=== PATIENT | female | born 1935 | race Caucasian/White ===

== ENCOUNTER 2016-11-28 08:26 | Observation (INO) ==
[2016-11-28] MEDS ORDERED: Aspirin 81 MG TAB.CHEW PO STA (08:37)
[2016-11-28] MEDS ORDERED: Nitroglycerin 1 INCH/GM PACKET TP ONE (08:39)
--- NOTE | 2016-11-28 08:40 | Emergency Department Note ---
Disposition Clinical Impression: Chest pain Qualifiers: Chest pain type: unspecified Qualified Code(s): R07.9 - Chest pain, unspecified Disposition: Admitted As Inpatient Condition: Fair Instructions: Chest Pain (ED) Referrals: NO,PCP [Primary Care Provider] - Forms: ED Satisfaction Letter Time of Disposition: 09:16 Chest Pain HPI - General Chief Complaint: ED Chest Pain Stated Complaint: C/P Time Seen by Provider: 11/28/16 08:28 Source: patient Limitations: no limitations Vital Signs Reviewed: Yes Nursing Notes Reviewed: Yes - History of Present Illness HPI Narrative: 81-year-old female who was over at the pain management to have a left hip injection and reported that she's been having chest pain this morning just started prior to arrival. She describes it as a heaviness in her chest. The patient has never had cardiac workup is no history of coronary artery disease. Her only risk factor R family history and age. 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 Duration: constant Onset: during rest Pain Location: left chest Severity: moderate, severe Severity scale (1-10): 8 Quality: tightness, aching Pain Radiation: none Improves with: nothing Worsens with: nothing Associated symptoms: Reports: diaphoresis Treatments prior to arrival chest pain: none - Related Data Allergies Allergy/AdvReac Type Severity Reaction Status Date / Time Amoxicillin AdvReac Anxiety Unverified 04/11/15 10:24 celecoxib [From Celebrex] AdvReac Gastrointestinal Unverified 04/11/15 10:24 Upset ciprofloxacin [From Cipro] AdvReac Nausea Unverified 04/11/15 10:24 codeine AdvReac Nausea Unverified 04/11/15 10:24 diphenhydramine AdvReac Nausea Unverified 04/11/15 10:24 [From Benadryl] duloxetine [From Cymbalta] AdvReac Confusion Unverified 04/11/15 10:24 gabapentin AdvReac Anxiety Unverified 04/11/15 10:24 pregabalin [From Lyrica] AdvReac Anxiety Unverified 04/11/15 10:24 promethazine [From Phenergan] AdvReac Anxiety Unverified 04/11/15 10:24 sertraline AdvReac Anxiety Unverified 04/11/15 10:24 sulfamethoxazole AdvReac Hives Unverified 04/11/15 10:24 [From Bactrim] trimethoprim [From Bactrim] AdvReac Hives Unverified 04/11/15 10:24 Zolpidem [From Ambien] AdvReac Insomnia Unverified 04/11/15 10:24 All systems ED: reviewed and negative except as stated. Constitutional: Denies: fever, chills, weakness, weight change Eyes: Denies: eye pain, eye discharge, vision change ENT ED: Denies: ear pain, throat pain, dental pain, hearing loss, epistaxis, congestion, dysphagia Cardiovascular: Reports: chest pain. Denies: palpitations, dyspnea on exertion , edema, syncope Respiratory: Denies: cough, dyspnea, wheezes, hemoptysis, stridor Gastrointestinal: Denies: abdominal pain, nausea, vomiting, diarrhea, constipation, hematemesis, melena, hematochezia Genitourinary: Denies: dysuria, frequency, hematuria, discharge Musculoskeletal: Denies: back pain, neck pain, arthralgia, myalgia Integumentary: Denies: rash, abrasion, lesions Neurological: Denies: headache, weakness, numbness, paresthesias, confusion, abnormal gait, vertigo Psychiatric: Denies: anxiety, depression, suicidal thoughts, homicidal thoughts , auditory hallucinations, visual hallucinations Endocrine: Denies: fatigue Hematological/Lymphatic: Denies: easy bleeding, easy bruising Allergic/Immunologic: Denies: facial swelling, urticaria Chest Pain PMH - Past Medical History Medical history: Reports: arthritis, cancer, osteoporosis Surgical history: Reports: cancer surgery, MIGUEL/BSO Psychiatric history: Reports: no psych history - Social History Smoking Status: Never smoker Alcohol use: Reports: none Drug use: Reports: none Physical Exam - General Limitations: no limitations General appearance: alert, in no apparent distress - Head Head exam: atraumatic, normocephalic, normal inspection - Eye Eye exam: Present: normal appearance, PERRL, EOMI - ENT ENT exam: normal exam, normal oropharynx, mucous membranes moist - Neck Neck exam: Present: normal inspection, full ROM, trachea midline - Chest Chest inspection: Present: normal inspection, symmetric chest wall rise - Respiratory Respiratory exam: Present: normal lung sounds bilaterally - Cardiovascular Cardiovascular exam: Present: regular rate, normal rhythm, normal heart sounds - Abdominal Exam Abdominal exam: Present: soft, Non-Tender. Absent: tenderness, distention, guarding, rebound, rigidity - Extremities Exam Extremities exam: Present: normal inspection, full ROM. Absent: tenderness, pedal edema - Expanded Lower Extremity Exam Neurovascular/Tendon exam: Absent: motor deficit, sensory deficit, tendon deficit Gait: observed and normal - Back Exam Back exam: Present: normal inspection, full ROM. Absent: tenderness - Neurological Exam Neurological exam: Present: alert, oriented X3 - Psychiatric Psychiatric exam: Present: normal affect, normal mood - Skin Skin exam: Present: warm, dry, intact, normal color Course - Reevaluation(s) Reevaluation #1: Workup react enzymes are negative EKG showed no acute changes. Was given nitroglycerin with improvement in her symptoms. Patient will be admitted for further evaluation and treatment. Time: 09:10 - Consultations Consultation #1: I discussed the case with rj Quintero. Time: 09:27 Vital Signs Temperature 97.9 F 11/28/16 08:29 Pulse Rate 89 11/28/16 08:29 Respiratory Rate 18 11/28/16 08:29 Blood Pressure 211/108 11/28/16 08:29 O2 Sat by Pulse Oximetry 96 11/28/16 08:29 Temperature 97.9 F 11/28/16 08:29 Pulse Rate 75 11/28/16 08:45 Respiratory Rate 18 11/28/16 08:45 Blood Pressure 155/93 11/28/16 08:45 O2 Sat by Pulse Oximetry 99 11/28/16 08:45 Oxygen Delivery Oxygen Delivery Room Air Chest Pain - Lab Data Lab results reviewed: Yes I reviewed the patient's lab results. Result diagrams: 11/28/16 08:37 11/28/16 08:37 Lab Results 11/28/16 11/28/16 11/28/16 Range/Units 08:37 08:37 08:37 WBC 5.3 (4.3-11.1) K/mcL RBC 4.75 (3.82-4.97) M/mcL Hgb 14.1 (11.5-15.4) g/dL Hct 43.1 (35.3-44.9) % MCV 90.7 (83.0-100.0) fL MCH 29.7 (28.0-33.3) pg MCHC 32.7 (31.6-35.5) g/dL RDW 12.6 (11.5-14.5) % Plt Count 239 (140-400) K/mcL MPV 10.2 (9.4-12.4) fL Immature Gran % 0.2 (0-4) % Seg Neutrophils % 48.9 % Lymphocytes % 40.4 % Monocytes % 6.7 % Eosinophils % 3.4 % Basophils % 0.4 % Neutrophils # 2.6 (1.6-8.9) K/mcL Lymphocytes # 2.2 (0.6-4.6) K/mcL Monocytes # 0.4 (0.0-1.3) K/mcL Eosinophils # 0.2 (0.0-0.6) K/mcL Basophils # 0.0 (0.0-0.2) K/mcL PT 11.0 (9.4-12.1) Seconds INR 1.0 APTT 27.7 (26.0-36.0) Seconds Sodium 137 (136-145) mEq/L Potassium 4.0 (3.5-4.5) mEq/L Chloride 104 (98-109) mEq/L Carbon Dioxide 26 (19-29) mEq/L BUN 15 (7-20) mg/dL Creatinine 0.82 (0.57-1.11) mg/dL Est GFR ( Amer) > 60 (> 60) Est GFR (Non-Af Amer) > 60 (> 60) BUN/Creatinine Ratio 18 (6-26) Glucose 99 (70-99) mg/dL Calculated Osmolality 285 (280-300) Calcium 9.5 (8.6-10.8) mg/dL Troponin I (0-0.03) ng/mL 11/28/16 Range/Units 08:37 WBC (4.3-11.1) K/mcL RBC (3.82-4.97) M/mcL Hgb (11.5-15.4) g/dL Hct (35.3-44.9) % MCV (83.0-100.0) fL MCH (28.0-33.3) pg MCHC (31.6-35.5) g/dL RDW (11.5-14.5) % Plt Count (140-400) K/mcL MPV (9.4-12.4) fL Immature Gran % (0-4) % Seg Neutrophils % % Lymphocytes % % Monocytes % % Eosinophils % % Basophils % % Neutrophils # (1.6-8.9) K/mcL Lymphocytes # (0.6-4.6) K/mcL Monocytes # (0.0-1.3) K/mcL Eosinophils # (0.0-0.6) K/mcL Basophils # (0.0-0.2) K/mcL PT (9.4-12.1) Seconds INR APTT (26.0-36.0) Seconds Sodium (136-145) mEq/L Potassium (3.5-4.5) mEq/L Chloride (98-109) mEq/L Carbon Dioxide (19-29) mEq/L BUN (7-20) mg/dL Creatinine (0.57-1.11) mg/dL Est GFR ( Amer) (> 60) Est GFR (Non-Af Amer) (> 60) BUN/Creatinine Ratio (6-26) Glucose (70-99) mg/dL Calculated Osmolality (280-300) Calcium (8.6-10.8) mg/dL Troponin I 0.00 (0-0.03) ng/mL - Radiology Data Radiology results reviewed: Yes I reviewed the patient's radiology results. Chest X-Ray 11/28/16 08:36 IMPRESSION: 1. Masslike 2.7 cm left basilar opacity. This may be secondary to a posterior fat containing diaphragmatic hernia, seen in 2007. However, the opacity is more prominent on today's study. Further evaluation with chest CT is recommended. 2. COPD. D/ / Jase Lind MD / Jase Lind MD Interpreting Provider: Jase Lind MD - EKG Data EKG attestation: Yes I reviewed and interpreted this EKG. EKG shows normal: sinus rhythm Rate: normal Rhythm: NSR When compared to previous EKG there are: no significant changes (02/19/2005) Interpretation: no acute changes Heart Score - Score History: Moderately Suspicious EKG: Non Specific repolarisation Disturbance Age: Greater than 65 Risk Factors: 1-2 risk factors Troponin: Less than normal limit HEART Score Total: 5
[2016-11-28 08:54] LABS: Activated Partial Thrombo Time 27.7 Seconds (26.0-36.0)
[2016-11-28 08:59] LABS: BUN/Creatinine Ratio 18 (6-26); Blood Urea Nitrogen 15 mg/dL (7-20); Calcium 9.5 mg/dL (8.6-10.8); Carbon Dioxide 26 mEq/L (19-29); Chloride 104 mEq/L (98-109); Glucose 99 mg/dL (70-99); Osmolality,Calculated 285 (280-300); Sodium 137 mEq/L (136-145); eGFR For African Americans > 60 (> 60); eGFR For Non-African Americans > 60 (> 60)
[2016-11-28 09:06] LABS: Basophils % 0.4 %; Eosinophils # 0.2 K/mcL (0.0-0.6); Eosinophils % 3.4 %; Hematocrit 43.1 % (35.3-44.9); Hemoglobin 14.1 g/dL (11.5-15.4); Immature Granulocytes % 0.2 % (0-4); Lymphocytes # 2.2 K/mcL (0.6-4.6); Lymphocytes % 40.4 %; Mean Corpuscular HGB Conc 32.7 g/dL (31.6-35.5); Mean Corpuscular Hemoglobin 29.7 pg (28.0-33.3); Mean Corpuscular Volume 90.7 fL (83.0-100.0); Mean Platelet Volume 10.2 fL (9.4-12.4); Monocytes # 0.4 K/mcL (0.0-1.3); Monocytes % 6.7 %; Neutrophils # 2.6 K/mcL (1.6-8.9); Platelet Count 239 K/mcL (140-400); Red Blood Count 4.75 M/mcL (3.82-4.97); Red Cell Distribution Width 12.6 % (11.5-14.5); Segmented Neutrophils % 48.9 %
--- NOTE | 2016-11-28 11:06 | Internal Med History&Physical ---
Date of Encounter: 11/28/16 Time of Encounter: 10:00 Assessment and Plan (1) Chest pain Current visit: Yes Status: Acute Given her age and her description of the chest pain with worsening intensity and duration and relief with nitroglycerin, concern for angina/ ACS. Monitor with telemetry, trend troponins. Plan for stress test in a.m. Check lipid profile. Aspirin and statin. Qualifiers: Chest pain type: precordial pain Qualified Code(s): R07.2 - Precordial pain (2) Elevated BP without diagnosis of hypertension Current visit: Yes Status: Acute Patient's blood pressure is elevated in the ER. She does not carry a diagnosis of hypertension and is not on any medications. If her blood pressure remains persistently elevated, she will started on oral antihypertensives. Internal Medicine - H&P: HPI Chief complaint: Chest pain Admitted From: Emergency Dept Plans for Post Hospital Care: Home History of present illness: Ms. Montoya is a 81 year old female patient with history of fibromyalgia, arthritis who presented to the ER with complaints of chest pressure. Symptoms have been going on intermittently for the past several days but have been progressively worsening in severity and intensity. Her symptoms usually spontaneously resolve. This morning she was in the pain clinic to get treatment for hip pain when she reported chest discomfort that felt like a pressure as if someone were sitting on her chest. Her pain started to improve while she was coming to the ER and a nitroglycerin patch was placed on her and she was given aspirin with relief of chest pain. She denies any palpitations. No dizziness or lightheadedness. No shortness of breath. Patient does report a history of high blood pressure that is intermittent and patient is not on any medications for this. She does check her blood pressure multiple times during the day she says it usually runs in the 130s systolic. She underwent upper GI endoscopy recently for episodes of nausea and abdominal pain. She was found to have some mild gastritis and a small hiatal hernia. H. pylori was negative. Since then, these symptoms have improved. Past Med Surg Social Fam HX - Past Medical History Attestation: Yes The following information was validated with the patient. Source: patient Medical history: arthritis, cancer, osteoporosis Psychiatric history: no psych history - Past Surgical History Surgical History: cancer surgery, MIGUEL/BSO - Social History Smoking Status: Never smoker Smokeless Tobacco Status: No Alcohol use: none Drug use: none - Additional Family History Additional family history: Reviewed and found to be noncontributory at This time Internal Medicine - H&P: Meds Acetaminophen [Tylenol] 650 mg PO HS PRN 11/28/16 [History] Aspirin [Lo-Dose Aspirin EC] 81 mg PO DAILY 11/28/16 [History] Calcium Carbonate/Vitamin D3 [Calcium 500-Vit D3 600 Tablet] 1 tab PO DAILY [History] Ibuprofen [Advil] 200 mg PO DAILY PRN 11/28/16 [History] Multivitamin [One Daily Essential] 1 tab PO DAILY 11/28/16 [History] Allergies Amoxicillin Adverse Reaction (Unverified 04/11/15 10:24) Anxiety celecoxib [From Celebrex] Adverse Reaction (Unverified 04/11/15 10:24) Gastrointestinal Upset ciprofloxacin [From Cipro] Adverse Reaction (Unverified 04/11/15 10:24) Nausea codeine Adverse Reaction (Unverified 04/11/15 10:24) Nausea diphenhydramine [From Benadryl] Adverse Reaction (Unverified 04/11/15 10:24) Nausea duloxetine [From Cymbalta] Adverse Reaction (Unverified 04/11/15 10:24) Confusion gabapentin Adverse Reaction (Unverified 04/11/15 10:24) Anxiety pregabalin [From Lyrica] Adverse Reaction (Unverified 04/11/15 10:24) Anxiety promethazine [From Phenergan] Adverse Reaction (Unverified 04/11/15 10:24) Anxiety sertraline Adverse Reaction (Unverified 04/11/15 10:24) Anxiety sulfamethoxazole [From Bactrim] Adverse Reaction (Unverified 04/11/15 10:24) Hives trimethoprim [From Bactrim] Adverse Reaction (Unverified 04/11/15 10:24) Hives Zolpidem [From Ambien] Adverse Reaction (Unverified 04/11/15 10:24) Insomnia All Systems PM: A 10-system review of systems was performed and is negative for pertinent findings except as documented above in the HPI. - Constitutional Constitutional: no chills, no fever(s), no night sweats - EENT Eyes: no change in vision, no discharge, no pain, no photophobia Ears: no ear discharge, no ear pain, no tinnitus Nose, mouth and throat: no dysphagia, no nasal discharge, no neck pain, no sore throat - Cardiovascular Cardiovascular ROS IM: chest pain, no diaphoresis, no dyspnea, no lightheadedness, no palpitations, no syncope - Respiratory Respiratory: no cough, no dyspnea, no wheezing, no excessive phlegm production - Gastrointestinal Gastrointestinal: no abdominal pain, no diarrhea, no hematemesis, no hematochezia, no melena, no nausea, no vomiting - Genitourinary Genitourinary: no change in urinary stream, no dysuria, no flank pain, no hematuria - Musculoskeletal Musculoskeletal ROS IM: no numbness, no tingling - Integumentary Integumentary IM: no rash, no unusual bruising - Neurological Neurological ROS: no confusion, no convulsions, no focal weakness, no numbness, no tingling, no tremor(s) - Hematologic/Lymphatic Hematologic/Lymphatic: no easy bruising - Constitutional Vitals: Temp Pulse Resp BP Pulse Ox 97.9 F 68 16 165/87 98 11/28/16 08:29 11/28/16 09:45 11/28/16 09:45 11/28/16 09:45 11/28/16 09:45 General appearance: Present: cooperative, A&O X 3, no acute distress, answers questions appropriately - Neck Neck exam general surgery: Present: supple, trachea midline. Absent: lymphadenopathy - Respiratory Respiratory exam: Present: CTAB. Absent: accessory muscle use, rales, rhonchi, wheezes - Cardiovascular Cardiovascular exam: Present: RRR, +S1, +S2. Absent: diastolic murmur, gallop, rubs, systolic murmur - GI/Abdominal GI/Abdominal exam: Present: normal bowel sounds, soft, no peritoneal signs. Absent: distended, tenderness - Extremities Exam Extremities exam: Present: warm, radial pulses palpable and symetrical. Absent : calf tenderness, cyanotic, pedal edema - Neurological Exam Neurological exam: Present: alert, oriented X3, no focal deficits. Absent: facial droop, speech deficit Internal Med - H&P Results - Labs CBC & Chem 7: 11/28/16 08:37 11/28/16 08:37 Labs: Short CBC 11/28/16 Range/Units 08:37 WBC 5.3 (4.3-11.1) K/mcL Hgb 14.1 (11.5-15.4) g/dL Hct 43.1 (35.3-44.9) % Plt Count 239 (140-400) K/mcL Neutrophils # 2.6 (1.6-8.9) K/mcL BMP 11/28/16 08:37 Sodium 137 Potassium 4.0 Chloride 104 Carbon Dioxide 26 BUN 15 Creatinine 0.82 Glucose 99 Calcium 9.5 Cardiac Enzymes 11/28/16 Range/Units 08:37 Troponin I 0.00 (0-0.03) ng/mL - Impressions ITS Impressions Chest X-Ray 11/28/16 08:36 IMPRESSION: 1. Masslike 2.7 cm left basilar opacity. This may be secondary to a posterior fat containing diaphragmatic hernia, seen in 2007. However, the opacity is more prominent on today's study. Further evaluation with chest CT is recommended. 2. COPD. D/ / Jase Lind MD / Jase Lind MD Interpreting Provider: Jase Lind MD Chest CT 11/28/16 09:26 IMPRESSION: 1. No mass lesions seen in the chest. Findings on the chest x-ray may be related to an irregular contour of the left hemidiaphragm, with an unusually superior location of the left kidney. 2. Mild interstitial opacities/scarring at the lung apices and in the upper lungs, most likely related to emphysema. 3. Coronary atherosclerosis. D/ / Jemal Bautista MD / Jemal Bautista MD Interpreting Provider: Jemal Bautista MD
[2016-11-28] MEDS ORDERED: Acetaminophen 325 MG TABLET PO PRN (12:15)
[2016-11-28] MEDS ORDERED: Naloxone 0.4 MG/ML INJ IVP PRN (12:15)
--- NOTE | 2016-11-28 18:05 | Electrocardiograph Report ---
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
[2016-11-29 01:14] LABS: Basophils % 0.6 %; Eosinophils # 0.2 K/mcL (0.0-0.6); Eosinophils % 4.1 %; Hematocrit 39.5 % (35.3-44.9); Hemoglobin 13.3 g/dL (11.5-15.4); Immature Granulocytes % 0.2 % (0-4); Lymphocytes # 1.7 K/mcL (0.6-4.6); Lymphocytes % 32.5 %; Mean Corpuscular HGB Conc 33.7 g/dL (31.6-35.5); Mean Corpuscular Hemoglobin 30.6 pg (28.0-33.3); Mean Platelet Volume 10.4 fL (9.4-12.4); Monocytes # 0.4 K/mcL (0.0-1.3); Monocytes % 8.3 %; Neutrophils # 2.9 K/mcL (1.6-8.9); Platelet Count 207 K/mcL (140-400); Red Blood Count 4.34 M/mcL (3.82-4.97); Red Cell Distribution Width 12.8 % (11.5-14.5); Segmented Neutrophils % 54.3 %
[2016-11-29 01:27] LABS: BUN/Creatinine Ratio 21 (6-26); Blood Urea Nitrogen 15 mg/dL (7-20); Calcium 8.9 mg/dL (8.6-10.8); Carbon Dioxide 22 mEq/L (19-29); Chloride 106 mEq/L (98-109); Chol/HDL Ratio 3.4 (0-4.9); Cholesterol 200 mg/dL (< 200); Glucose 98 mg/dL (70-99); HDL Cholesterol 58 mg/dL (40-59); Osmolality,Calculated 283 (280-300); Potassium 3.9 mEq/L (3.5-4.5); Sodium 136 mEq/L (136-145); eGFR For African Americans > 60 (> 60); eGFR For Non-African Americans > 60 (> 60)
[2016-11-29 01:34] LABS: LDL Cholesterol,Calculated 125 mg/dL (0-99); Triglycerides 86 mg/dL (< 150)
[2016-11-29 01:40] LABS: Hemoglobin A1C 5.4 %
[2016-11-29] MEDS ORDERED: Regadenoson 0.4 MG/5 ML SYRINGE IVP ONE (06:00)
[2016-11-29] MEDS ORDERED: Aspirin Enteric Coated 81 MG Tablet PO SCH (09:00)
--- NOTE | 2016-11-29 13:28 | Nuclear Medicine Stress Report ---
Regadenoson Nuclear Stress Name: Shamika Montoya Date of Study: 11/29/2016 Date: 1935 Ht: 65.0 in Medical Record#: [id number] Age: 81 Wt: 127.0 lb Gender: Female Order #: [id number] Location: [facility] Room: [facility] Supervising Provider: Vazquez Powers CNP Reading Physician: Devon Hwang MD, [facility] Ordering Physician: Valeria Foster CNP Primary Care Physician: Herber Anderson MD Stress Technologist: Lili Bravo, SHAN Brickmason Contractor: Neal Rocha Indications: Chest Pain Impression: Intermittent diffuse ST depressions and T-wave inversions were noted prior to the study and in recovery. Gated LVEF = 68%. Perfusion imaging was negative for ischemia or infarct. Stress Test Summary: Stress Test Type: Pharmacologic Regadenoson 0.4mg/5ml given IV Baseline Information: Initial Heart Rate: 93 Blood Pressure: 142/90 Stress Information: Test Terminated Due to (primary): Dizziness Maximum Blood Pressure: 138/78 Maximum Heart Rate: 105 Percent Maximum Heart Rate Achieved: 75 Double Product: [id number] Symptoms: Nausea, Dizziness Nuclear Summary: SPECT myocardial perfusion imaging using Tc99m Sestamibi given intravenously was performed at rest and following cardiac stress testing. The resting images were obtained following initial dose of 10.7 mCi. Following stress an additional dose of 35.6 mCi was given at peak exercise or 30 seconds post regadenoson infusion. Findings: Stress Note * Resting ECG demonstrated sinus rhythm with occasional PVCs, inferolateral ST-T wave abnormalities. * Intermittent diffuse ST depressions and T-wave inversions were noted prior to the study and in recovery. * Rare PVCs noted prior to exam beginning. * Patient had no chest pain during stress. * No arrhythmias were noted during stress. * Pharmacologic stress ECG is non-diagnostic for ischemia. Hemodynamic responses * Normal hemodynamic responses to pharmacologic stress. Study Quality * Study quality is good. Gated EF % * Gated LVEF = 68%. Left Ventricle * The left ventricle is not dilated. * Normal Segmental Perfusion in rest. * Normal segmental perfusion in stress. TID * No evidence of transient ischemic dilatation. Updated by Devon Hwang MD, [facility] on 11/29/2016 1:23:16 PM electronically signed on 11/29/2016 1:23:45 PM with status of Final
[2016-11-29 14:56] VITALS: BP 138/80
--- NOTE | 2016-11-29 15:30 | Discharge Summary ---
Date of Encounter: 11/29/16 Time of Encounter: 10:40 - Discharge Diagnosis (1) Chest pain Priority: Primary Status: Acute Comments: Patient reports that she was at the pain management office yesterday when she began having some nausea, chest heaviness/pain over her entire chest. She said she became dizzy, short of breath, diaphoretic. It lasted about 30 minutes. She is having these episodes intermittently for the last 2-3 months, maybe 2-3 times a week. Recently had an EGD that was negative. She has been seen by Dr. ling as well, he is looking at her gallbladder. She denies any prior cardiac history. She has been started on Zocor here, cholesterol was 200. Troponins were negative. On her echocardiogram, intermittent diffuse ST depressions and T-wave inversions were noted prior to the study and in recovery. Gated EF 68%. Perfusion imaging was negative for ischemia or infarct. She is pain-free at this time. Patient voluntarily stated that she believes a lot of her chest pain is due to anxiety. She says she has discussed this in the past with her primary care physician, Dr. Anderson, who is in agreement with that. She states the anxiety stems from chronic pain that is undiagnosed, this is why she was at pain management office. Chest X-Ray 11/28/16 08:36 IMPRESSION: 1. Masslike 2.7 cm left basilar opacity. This may be secondary to a posterior fat containing diaphragmatic hernia, seen in 2007. However, the opacity is more prominent on today's study. Further evaluation with chest CT is recommended. 2. COPD. D/ / Jase Lind MD / Jase Lind MD Interpreting Provider: Jase Lind MD Chest CT 11/28/16 09:26 IMPRESSION: 1. No mass lesions seen in the chest. Finding on the chest x-ray may be related to an irregular contour of the left hemidiaphragm, with an unusually superior location of the left kidney. 2. Mild interstitial opacities/scarring at the lung apices and in the upper lungs, most likely related to emphysema. 3. Coronary atherosclerosis. D/ / 11/28/2016 11:02:44 Jemal Bautista MD / héctor Interpreting Provider: Jemal Bautista MD Qualifiers: Chest pain type: precordial pain Qualified Code(s): R07.2 - Precordial pain (2) Elevated BP without diagnosis of hypertension Priority: Secondary Status: Acute Comments: Patient's blood pressure was elevated on admission. Readings today have been 130s over 80s. This is well within goal blood pressure. Patient will continue to monitor and follow up with primary care as needed. - Discharge Medications Prescriptions: Simvastatin [Zocor] 10 mg PO HS #30 tablet Home Medications: Acetaminophen [Tylenol] 650 mg PO HS PRN 11/28/16 [History] Aspirin [Lo-Dose Aspirin EC] 81 mg PO DAILY 11/28/16 [History] Calcium Carbonate/Vitamin D3 [Calcium 500-Vit D3 600 Tablet] 1 tab PO DAILY [History] Ibuprofen [Advil] 200 mg PO DAILY PRN 11/28/16 [History] Multivitamin [One Daily Essential] 1 tab PO DAILY 11/28/16 [History] Simvastatin [Zocor] 10 mg PO HS #30 tablet 11/29/16 [Rx] Allergies/Adverse Reactions: Allergies Amoxicillin Adverse Reaction (Unverified 04/11/15 10:24) Anxiety celecoxib [From Celebrex] Adverse Reaction (Unverified 04/11/15 10:24) Gastrointestinal Upset ciprofloxacin [From Cipro] Adverse Reaction (Unverified 04/11/15 10:24) Nausea codeine Adverse Reaction (Verified 11/28/16 20:01) Nausea diphenhydramine [From Benadryl] Adverse Reaction (Unverified 04/11/15 10:24) Nausea duloxetine [From Cymbalta] Adverse Reaction (Unverified 04/11/15 10:24) Confusion gabapentin Adverse Reaction (Unverified 04/11/15 10:24) Anxiety pregabalin [From Lyrica] Adverse Reaction (Unverified 04/11/15 10:24) Anxiety promethazine [From Phenergan] Adverse Reaction (Unverified 04/11/15 10:24) Anxiety sertraline Adverse Reaction (Unverified 04/11/15 10:24) Anxiety sulfamethoxazole [From Bactrim] Adverse Reaction (Unverified 04/11/15 10:24) Hives trimethoprim [From Bactrim] Adverse Reaction (Unverified 04/11/15 10:24) Hives Zolpidem [From Ambien] Adverse Reaction (Unverified 04/11/15 10:24) Insomnia Procedures/tests Complete & Pending: Procedures Performed prior 72 hours Category Date Time Status NM colleen perf SPECT multi [NM] Routine Exams 11/28/16 12:16 Taken SP pharm nuclear stress Routine Y 11/29/16 07:00 Completed Date of admission: 11/28/16 11:48 Primary care physician: Herber Anderson MD Discharging clinician: Valeria Foster Anticipated date of discharge: 11/29/16 - Patient Status Disposition: Home, Self-Care Condition: Good Functional capacity at discharge: independent ambulation Overall status at discharge: patient is back to baseline - Discharge Instructions Follow Up With: Herber Anderson MD [Primary Care Provider] - Additional Instructions: Please return to the ER as needed for any other problems or concerns, or if your symptoms return. Follow up with Dr. Anderson in the next week to 10 days for a follow up visit. Resume your home medications tomorrow morning. I have sent a prescription for the Zocor to your pharmacy. - Diet and Activity Activity: increase activity as tolerated Diet: advance to your usual diet Hospital course: Ms. Montoya is a 81 year old female post medical history of fibromyalgia, arthritis. She presented to the emergency department with complaints of chest pressure periods she reports intermittent midsternal chest pressure for the last 2-3 months. Yesterday she was pain management office when she began feeling nauseated, having chest heaviness/pain all over her entire chest. She reported dizziness, shortness of breath, diaphoresis. She said that she felt like she had to sit down immediately if she was going to pass out. She was presented in a wheelchair by office staff and taken to the emergency department. Pain lasted approximately 30 minutes. She independently reported to me that she feels a lot of her chest pain history clearly related to stress and anxiety. She also stated that her primary care physician feels the same. She has chronic pain from her hips to her toes that is largely undiagnosed. She reports the pain images attempting to get her pain under control, however she still has pain. She said this at times causes her anxiety. Her troponins were negative. Chest x-ray/chest CT negative. Her stress test showed ST depression during and after the study, with the gated LVEF of 60%, perfusion imaging was negative for ischemia or infarct. Patient has been pain-free. She says that she recently had an EGD by Dr. ling that was negative. She said she was sent for an EGD because primary care physician thought some of the chest pain might be due to an ulcer. She states that she was to return to Dr. Nuno who was going to examine her gallbladder, but she did not call him last week for an appointment. She denies any cardiac history. On admission patient was hypertensive. Since that time, today blood pressures 130s over 80s which are well within goal. Cholesterol is 200. Patient has been started on Zocor here in the hospital, I have sent a prescription home with her. She said she may or may not take it like to speak to her primary care about it. At this time I do not feel that she needs antihypertensive, she will need to watch her blood pressure report readings to primary care. Other labs and vitals are within normal limits. Patient is ready for discharge. - Time Spent with Patient Total time spent providing and/or coordinating discharge services: Less than 30 minutes - Constitutional Vitals: Temp Pulse Resp BP Pulse Ox 97.6 F 72 16 138/80 99 11/29/16 14:53 11/29/16 14:53 11/29/16 14:53 11/29/16 14:53 11/29/16 14:53 General appearance: Present: cooperative, A&O X 3, pleasant, no acute distress, answers questions appropriately - Head Head exam: Present: normal inspection - Eye Eye exam: Present: normal appearance, conjuntiva pink - ENT ENT exam: Present: mucous membranes moist - Neck Neck exam general surgery: Present: normal inspection. Absent: lymphadenopathy , tenderness - Respiratory Respiratory exam: Present: CTAB. Absent: rales, respiratory distress, rhonchi, stridor, wheezes - Cardiovascular Cardiovascular exam: Present: RRR, +S1, +S2. Absent: clicks, diastolic murmur, gallop, systolic murmur - GI/Abdominal GI/Abdominal exam: Present: normal bowel sounds, soft. Absent: hepatomegaly, tenderness - Extremities Exam Extremities exam: Present: warm, radial pulses palpable and symetrical. Absent : mottling, pedal edema, tenderness - Neurological Exam Neurological exam: Present: alert, oriented X3. Absent: facial droop, speech deficit - Skin Skin exam: Present: dry, normal color, warm. Absent: rash - VTE Documentation of Mechanical Device: Intermittent pneumatic compression device
== END 2016-11-29 16:10 | disposition home or self-care (01) ==
LOC: 3BNU 08:26 → EMEROO 08:26 → 3BNU 12:37
PROVIDERS: ADMIT Internal Medicine; ATTEND Registered Nurse